=== PATIENT | male | born 1945 | race Two or more races ===

== ENCOUNTER → 2017-08-08 | Outpatient (CLI) | payer MEDICARE, OTHER | END | disposition home or self-care (01) | LOC: HKI 10:46 | DX: M17.11 Unilateral primary osteoarthritis, right knee (principal) | CPT/HCPCS: 73562; 73562-50 ==

== ENCOUNTER → 2017-09-05 | Outpatient (CLI) | payer MEDICARE, OTHER | END | disposition home or self-care (01) | LOC: HKI 10:08 | DX: Z01.818 Encounter for other preprocedural examination (principal) | CPT/HCPCS: G0463 ==

== ENCOUNTER 2017-09-15 11:08 | Inpatient (IN) | payer MEDICARE, OTHER ==
[2017-09-15] MEDS: CEFAZOLIN 2 GM/50 ML (PMX) 50 ML (FOR WT < 120 KG) IVPB (06:00)
[2017-09-15] MEDS: LANSOPRAZOLE 30 MG CAP PO (12:00)
[2017-09-15] MEDS: DEXAMETHASONE 4 MG/ML 1 ML INJ IV (12:00)
[2017-09-15] MEDS: ACETAMINOPHEN 1000MG/100ML IV 100 ML IVPB (12:00)
[2017-09-15] MEDS: LACTATED RINGER'S 1,000 ML IV (12:01)
[2017-09-15] MEDS: ONDANSETRON 4 MG INJ IV ×3 (12:06→22:00)
[2017-09-15] MEDS ORDERED: ETOMIDATE 20 MG INJ (12:06)
[2017-09-15] MEDS ORDERED: MIDAZOLAM 1 MG/ML 2 ML INJ ×3 (12:06→13:58)
[2017-09-15] MEDS ORDERED: LIDOCAINE 1% (MDV) 20 ML INJ (12:07)
[2017-09-15] MEDS ORDERED: FENTAnyl 50 MCG/ML VIAL ×2 (12:07→13:24)
[2017-09-15] MEDS ORDERED: POLYMYXIN B 500000 UNIT INJ (12:30)
[2017-09-15 12:47] LABS: INR 1.08; PROTIME 14.1 Sec (11.9-14.9); PT RATIO 1.1
[2017-09-15 12:48] LABS: PARTIAL THROMBOPLASTIN TIME 34.5 Sec (25.0-35.0)
[2017-09-15] MEDS ORDERED: BUPIVACAINE 0.75%/DEXT (SPINAL) 2 ML INJ ×2 (13:06→13:32)
[2017-09-15] MEDS ORDERED: LIDOCAINE 2% (SDV) 5 ML INJ (13:24)
[2017-09-15] MEDS ORDERED: NA BICARBONATE 8.4% 50 ML SYG (13:24)
[2017-09-15] MEDS ORDERED: CEFAZOLIN 1 GM INJ (13:47)
[2017-09-15] MEDS ORDERED: ACETAMINOPHEN 1000MG/100ML IV 100 ML (13:52)
[2017-09-15] MEDS ORDERED: KETOROLAC 30 MG INJ (13:52)
[2017-09-15] MEDS: TRANEXAMIC ACID 1,000 MG in D5W 100 ML AT INCISION X1 IVPB (13:59)
[2017-09-15] MEDS: POLYMYXIN B 500000 UNIT INJ (14:16)
[2017-09-15] MEDS: BACITRACIN 50000 UNITS INJ (14:16)
[2017-09-15] MEDS: TRANEXAMIC ACID 1,000 MG in D5W 100 ML AT CLOSURE X1 IVPB (14:19)
[2017-09-15] MEDS ORDERED: DEXAMETHASONE 4 MG/ML 1 ML INJ (15:25)
[2017-09-15] MEDS ORDERED: ROPIVACAINE 0.5 % 30 ML VIAL (15:25)
[2017-09-15] MEDS ORDERED: DIPHENHYDRAMINE 50 MG INJ IM (15:30)
[2017-09-15] MEDS ORDERED: oxyCODONE 5 MG TAB PO (15:30)
[2017-09-15] MEDS ORDERED: SENNA/DOCUSATE NA (8.6MG/50MG) TAB PO (15:30)
[2017-09-15] MEDS ORDERED: NA PHOSPHATE/BIPHOS 133 ML ENEMA PR (15:30)
[2017-09-15] MEDS ORDERED: BETHANECHOL 25 MG TAB PO (15:30)
[2017-09-15] MEDS ORDERED: MAGNESIUM HYDROXIDE 30ML CUP PO (15:30)
[2017-09-15] MEDS ORDERED: NALOXONE (0.4 MG/ML) INJ IV (15:30)
[2017-09-15] MEDS ORDERED: BISACODYL 10 MG SUPP PR (15:30)
[2017-09-15] MEDS ORDERED: ONDANSETRON 4 MG INJ IV (16:30)
[2017-09-15] MEDS ORDERED: HYDROmorphONE (0.2 MG/ML) 10ML SYG IV (16:30)
[2017-09-15] MEDS ORDERED: DOCUSATE SODIUM 100 MG CAP PO (16:50)
[2017-09-15] MEDS: CEFAZOLIN 1 GM/50 ML (PMX) 50 ML IVPB ×2 (16:53→23:48)
[2017-09-15] MEDS: DOCUSATE SODIUM 100 MG CAP PO (16:58)
[2017-09-15] MEDS: SOD CHLORIDE 0.9% 1,000 ML IV (18:15)
[2017-09-15] MEDS: oxyCODONE 5 MG TAB PO ×2 (20:29→23:48)
[2017-09-15] MEDS: GABAPENTIN 100 MG CAP PO (21:00)
[2017-09-15] MEDS: CELECOXIB 100 MG CAP PO (21:00)
[2017-09-16] MEDS: oxyCODONE 5 MG TAB PO ×6 (03:06→20:01)
[2017-09-16] MEDS: ONDANSETRON 4 MG INJ IV ×2 (03:30→10:30)
[2017-09-16] MEDS: SOD CHLORIDE 0.9% 1,000 ML IV ×2 (03:53→16:23)
[2017-09-16 05:23] LABS: ADD MAN DIFF? NO
[2017-09-16 05:24] LABS: BASOPHILS % 0.1 % (0.0-2.0); HEMATOCRIT 35.3 % (42.0-52.0); HEMOGLOBIN 11.5 g/dl (14.0-18.0); LYMPHOCYTES # 1.5 10^3/ul (0.8-2.9); MEAN CORPUSCULAR HEMOGLOBIN 28.5 pg (29.0-33.0); MEAN CORPUSCULAR HGB CONC 32.6 g/dl (32.0-37.0); MEAN CORPUSCULAR VOLUME 87.4 fl (82.0-101.0); MEAN PLATELET VOLUME 9.6 fl (7.4-10.4); MONOCYTE # 1.1 10^3/ul (0.3-0.9); MONOCYTES % 7.3 % (0.0-11.0); NEUTROPHIL # 11.9 10^3/ul (1.6-7.5); NEUTROPHILS % 82.3 % (39.0-77.0); PLATELET COUNT 237 10^3/UL (140-415); RED BLOOD COUNT 4.04 10^6/ul (4.70-6.10); RED CELL DISTRIBUTION WIDTH 16.9 % (11.5-14.5)
[2017-09-16 05:24] LABS: WHITE BLOOD COUNT 14.5 10^3/ul (4.8-10.8)
[2017-09-16 05:58] LABS: ANION GAP 12 (8-16); BLOOD UREA NITROGEN 12 mg/dl (7-20); CALCIUM 8.5 mg/dl (8.4-10.2); CARBON DIOXIDE 28 mmol/L (21-31); CHLORIDE 105 mmol/L (97-110); CREATININE 0.74 mg/dl (0.61-1.24); GLUCOSE 127 mg/dl (70-220); POTASSIUM 4.2 mmol/L (3.5-5.1); SODIUM 141 mmol/L (135-144)
[2017-09-16] MEDS: CEFAZOLIN 1 GM/50 ML (PMX) 50 ML IVPB (08:31)
[2017-09-16] MEDS: DOCUSATE SODIUM 100 MG CAP PO ×2 (09:23→20:01)
[2017-09-16] MEDS: ENOXAPARIN 30 MG/0.3 ML SYG SC ×2 (09:26→20:20)
[2017-09-16] MEDS: GABAPENTIN 100 MG CAP PO ×2 (09:30→20:15)
[2017-09-16] MEDS: FERROUS FUMARATE (SR) TAB PO ×2 (09:31→20:14)
[2017-09-16] MEDS: CELECOXIB 100 MG CAP PO ×2 (09:31→20:15)
[2017-09-16] MEDS ORDERED: GLUCAGON 1 MG INJ IM (11:00)
[2017-09-16] MEDS ORDERED: GLUCOSE GEL 15 GRAM TUBE BUCCAL (11:00)
[2017-09-16] MEDS ORDERED: DEXTROSE 50% 50 ML SYRINGE IV ×2 (11:00)
[2017-09-16] MEDS ORDERED: GLUCOSE GEL 15 GRAM TUBE PO ×2 (11:00)
[2017-09-16] MEDS: POTASSIUM CHLORIDE (SR) 10 MEQ TAB PO (11:14)
[2017-09-16] MEDS: ALLOPURINOL 300 MG TAB PO (11:14)
[2017-09-16] MEDS: BUMETANIDE 1 MG TAB PO (12:00)
[2017-09-16] MEDS: WARFARIN 3 MG TAB PO (12:01)
[2017-09-16] MEDS ORDERED: WARFARIN 2 MG TAB PO (17:00)
[2017-09-16] MEDS: metFORMIN 500 MG TAB PO (18:00)
[2017-09-16] MEDS: TAMSULOSIN (SR) 0.4 MG CAP PO (20:14)
[2017-09-16] MEDS: KETOROLAC 15 MG INJ IV (22:51)
[2017-09-16] MEDS ORDERED: ZOLPIDEM 5 MG TAB PO (23:30)
[2017-09-17] MEDS: HYDROmorphONE 0.5 MG/0.5 ML SYG IV (00:13)
[2017-09-17] MEDS: LATANOPROST 0.005% 2.5 ML OPH BOTH EYES (01:00)
[2017-09-17] MEDS: SOD CHLORIDE 0.9% 1,000 ML IV (04:08)
[2017-09-17 05:29] LABS: ADD MAN DIFF? NO
[2017-09-17 05:31] LABS: ABNORMAL IP MESSAGE 1; BASOPHIL # 0.1 10^3/ul (0.0-0.1); BASOPHILS % 0.5 % (0.0-2.0); EOSINOPHILS # 0.3 10^3/ul (0.0-0.5); HEMATOCRIT 33.8 % (42.0-52.0); HEMOGLOBIN 11.1 g/dl (14.0-18.0); LYMPHOCYTES # 2.7 10^3/ul (0.8-2.9); LYMPHOCYTES % 20.9 % (15.0-51.0); MEAN CORPUSCULAR HEMOGLOBIN 28.5 pg (29.0-33.0); MEAN CORPUSCULAR HGB CONC 32.8 g/dl (32.0-37.0); MEAN CORPUSCULAR VOLUME 86.9 fl (82.0-101.0); MEAN PLATELET VOLUME 9.5 fl (7.4-10.4); MONOCYTE # 1.7 10^3/ul (0.3-0.9); MONOCYTES % 13.1 % (0.0-11.0); NEUTROPHIL # 8.1 10^3/ul (1.6-7.5); NEUTROPHILS % 63.2 % (39.0-77.0); PLATELET COUNT 227 10^3/UL (140-415); POSITIVE DIFF @See below; RED BLOOD COUNT 3.89 10^6/ul (4.70-6.10); RED CELL DISTRIBUTION WIDTH 17.2 % (11.5-14.5)
[2017-09-17 05:31] LABS: WHITE BLOOD COUNT 12.8 10^3/ul (4.8-10.8)
[2017-09-17 05:44] LABS: INR 1.17; PROTIME 15.1 Sec (11.9-14.9); PT RATIO 1.2
[2017-09-17 05:46] LABS: ANION GAP 13 (8-16); BLOOD UREA NITROGEN 15 mg/dl (7-20); CALCIUM 8.6 mg/dl (8.4-10.2); CARBON DIOXIDE 29 mmol/L (21-31); CHLORIDE 103 mmol/L (97-110); CREATININE 0.85 mg/dl (0.61-1.24); GLUCOSE 102 mg/dl (70-220); POTASSIUM 3.8 mmol/L (3.5-5.1); SODIUM 141 mmol/L (135-144)
[2017-09-17] MEDS: BUMETANIDE 1 MG TAB PO (06:37)
[2017-09-17] MEDS: PANTOPRAZOLE (EC) 40 MG TAB PO (06:37)
[2017-09-17] MEDS: oxyCODONE 5 MG TAB PO ×3 (06:50→14:18)
[2017-09-17] MEDS: ENOXAPARIN 30 MG/0.3 ML SYG SC (09:03)
[2017-09-17] MEDS: DOCUSATE SODIUM 100 MG CAP PO (09:03)
[2017-09-17] MEDS: GABAPENTIN 100 MG CAP PO (09:03)
[2017-09-17] MEDS: metFORMIN 500 MG TAB PO (09:04)
[2017-09-17] MEDS: CELECOXIB 100 MG CAP PO (09:04)
[2017-09-17] MEDS: ALLOPURINOL 300 MG TAB PO (09:04)
[2017-09-17] MEDS: POTASSIUM CHLORIDE (SR) 10 MEQ TAB PO (09:04)
[2017-09-17] MEDS: FERROUS FUMARATE (SR) TAB PO (09:04)
[2017-09-17] MEDS ORDERED: WARFARIN 5 MG TAB NGT (17:00)
== END 2017-09-17 14:30 | DRG 470 ==
LOC: SDS 09-16 15:38 → REC 11:08 → MS1 09-16 14:44 → REC 17:30 → SDS 11:08 → MS1 17:30
PROC: 0SRC0J9 Replacement of Right Knee Joint with Synthetic Substitute, Cemented, Open Approach (ICD-10-PCS; principal; 2017-09-15 12:30)
DX: M17.11 Unilateral primary osteoarthritis, right knee (principal); Z95.2 Presence of prosthetic heart valve; I48.2 Chronic atrial fibrillation; Z95.0 Presence of cardiac pacemaker; I10 Essential (primary) hypertension; G47.30 Sleep apnea, unspecified; E11.9 Type 2 diabetes mellitus without complications; K21.9 Gastro-esophageal reflux disease without esophagitis; N40.1 Benign prostatic hyperplasia with lower urinary tract symptoms; R35.0 Frequency of micturition; R39.15 Urgency of urination; N39.43 Post-void dribbling; M10.9 Gout, unspecified; H40.9 Unspecified glaucoma
CPT/HCPCS: 73560; 80048; 82962; 85025; 85610; 85730; 86850; 86900; 86901; 87081; 87086; 88304; 88311; 97110; 97116; 97162; 97165; 97530

== ENCOUNTER → 2017-10-03 | Outpatient (CLI) | payer MEDICARE, OTHER | END | disposition home or self-care (01) | LOC: HKI 09:10 | DX: Z47.1 Aftercare following joint replacement surgery (principal); Z96.651 Presence of right artificial knee joint ==

== ENCOUNTER → 2017-10-17 | Outpatient (CLI) | payer MEDICARE, OTHER | END | disposition home or self-care (01) | LOC: HKI 09:40 | DX: Z47.1 Aftercare following joint replacement surgery (principal); Z96.651 Presence of right artificial knee joint ==

== ENCOUNTER → 2017-11-01 | Outpatient (CLI) | payer MEDICARE, OTHER | END | disposition home or self-care (01) | LOC: HKI 08:59 | DX: Z47.1 Aftercare following joint replacement surgery (principal); Z96.651 Presence of right artificial knee joint ==

== ENCOUNTER → 2017-11-14 | Outpatient (CLI) | payer MEDICARE, OTHER | END | disposition home or self-care (01) | LOC: HKI 09:31 | DX: Z47.1 Aftercare following joint replacement surgery (principal); Z96.651 Presence of right artificial knee joint ==

== ENCOUNTER → 2017-12-20 | Outpatient (CLI) | payer MEDICARE, OTHER | END | disposition home or self-care (01) | LOC: HKI 14:25 | DX: Z47.1 Aftercare following joint replacement surgery (principal); Z96.651 Presence of right artificial knee joint | CPT/HCPCS: 73560; 73560-RT ==

== ENCOUNTER → 2018-01-09 | Outpatient (CLI) | payer MEDICARE, OTHER | END | disposition home or self-care (01) | LOC: HKI 11:07 | DX: M25.511 Pain in right shoulder (principal); M12.811 Other specific arthropathies, not elsewhere classified, right shoulder | CPT/HCPCS: 20610; 73030-RT ==

== ENCOUNTER → 2018-03-13 | Outpatient (CLI) | payer MEDICARE, OTHER | END | disposition home or self-care (01) | LOC: HKI 14:13 | DX: Z47.1 Aftercare following joint replacement surgery (principal); Z96.651 Presence of right artificial knee joint | CPT/HCPCS: 73560; 73560-RT ==

== ENCOUNTER 2018-12-22 14:24 | Emergency (ER) | payer MEDICARE, OTHER ==
[2018-12-22 15:50] LABS: ADD MAN DIFF? NO
[2018-12-22] MEDS: ONDANSETRON 4 MG INJ IV (15:50)
[2018-12-22] MEDS: KETOROLAC 15 MG INJ IV (15:50)
[2018-12-22] MEDS: SOD CHLORIDE 0.9% 1,000 ML IV (15:50)
[2018-12-22 15:57] LABS: WHITE BLOOD COUNT 8.3 10^3/ul (4.8-10.8)
[2018-12-22 15:57] LABS: BASOPHILS % 0.5 % (0.0-2.0); EOSINOPHILS # 0.3 10^3/ul (0.0-0.5); EOSINOPHILS % 3.5 % (0.0-7.0); HEMATOCRIT 41.2 % (42.0-52.0); HEMOGLOBIN 12.7 g/dl (14.0-18.0); LYMPHOCYTES # 2.4 10^3/ul (0.8-2.9); LYMPHOCYTES % 28.8 % (15.0-51.0); MEAN CORPUSCULAR HEMOGLOBIN 24.1 pg (29.0-33.0); MEAN CORPUSCULAR HGB CONC 30.8 g/dl (32.0-37.0); MEAN CORPUSCULAR VOLUME 78.3 fl (82.0-101.0); MEAN PLATELET VOLUME 8.6 fl (7.4-10.4); MONOCYTE # 0.8 10^3/ul (0.3-0.9); MONOCYTES % 9.4 % (0.0-11.0); NEUTROPHIL # 4.8 10^3/ul (1.6-7.5); NEUTROPHILS % 57.6 % (39.0-77.0); PLATELET COUNT 273 10^3/UL (140-415); RED BLOOD COUNT 5.26 10^6/ul (4.70-6.10); RED CELL DISTRIBUTION WIDTH 20.5 % (11.5-14.5)
[2018-12-22 16:17] LABS: INR 3.41; PROTIME 34.4 Sec (11.9-14.9); PT RATIO 2.7
[2018-12-22 16:22] LABS: PARTIAL THROMBOPLASTIN TIME 74.7 Sec (23.0-35.0)
[2018-12-22 16:26] LABS: ALANINE AMINOTRANSFERASE 24 IU/L (13-69); ALBUMIN 3.8 g/dl (3.3-4.9); ALBUMIN/GLOBULIN RATIO 0.97; ALKALINE PHOSPHATASE 69 IU/L (42-121); ANION GAP 6 (5-13); ASPARTATE AMINO TRANSFERASE 29 IU/L (15-46); BILIRUBIN,INDIRECT 0.4 mg/dl (0-1.1); BILIRUBIN,TOTAL 0.4 mg/dl (0.2-1.3); BLOOD UREA NITROGEN 12 mg/dl (7-20); CALCIUM 9.2 mg/dl (8.4-10.2); CARBON DIOXIDE 30 mmol/L (21-31); CHLORIDE 103 mmol/L (97-110); CREATININE 0.92 mg/dl (0.61-1.24); GLUCOSE 136 mg/dl (70-220); LIPASE 178 U/L (23-300); POTASSIUM 4.1 mmol/L (3.5-5.1); SODIUM 139 mmol/L (135-144); TOTAL PROTEIN 7.7 g/dl (6.1-8.1)
== END 2018-12-22 18:27 | disposition home or self-care (01) ==
LOC: E/R 14:24
DX: S30.1XXA Contusion of abdominal wall, initial encounter (principal); E11.9 Type 2 diabetes mellitus without complications; I50.9 Heart failure, unspecified; E66.9 Obesity, unspecified; X58.XXXA Exposure to other specified factors, initial encounter; Y92.9 Unspecified place or not applicable; Z68.41 Body mass index [BMI] 40.0-44.9, adult; Z79.01 Long term (current) use of anticoagulants; Z79.84 Long term (current) use of oral hypoglycemic drugs; Z95.0 Presence of cardiac pacemaker; Z87.891 Personal history of nicotine dependence
CPT/HCPCS: 74176; 80053; 83690; 85025; 85610; 85730; 96374; 96375; 99285-25